=== PATIENT | female | born 1930 | race Caucasian/White ===

== ENCOUNTER → 2017-03-30 | Outpatient (CLI) | payer MEDICARE ==
[~2017-03-30] MED LIST: ACET-1966 PO; ACET500T68 PO; ALBU8.5H12 IH; ASPI-1471 PO; ASPIRIN; ATOR20TA65 PO; ATOR40TA69 PO; AVALIDE; CEP500 PO; CHOL100052 PO; DUL100/5PT INH; FLU180SY9 IM; FLU45SYR25 IM ONLY; FLUT16SP19 NS; HEART MED; HYDR-3503 PO; IRBE1TAB24 PO; LEV112 PO; LEVO-3 PO; LEVO125T77 PO; LEVO88TA45 PO; LISI-347 PO; LISI-353 PO; LOR5 PO; LOVA20TA99 PO; METO25TA91 PO; METO25TA93 PO; METO50TA19 PO; MILK OF MAGNESIA PO; MOM PO; NIC21T TOP; NICO-218 TD; OMEP-137 PO; OMEP-153 PO; PER PO; PNEU0.5D3 IM; PRILOSEC; SIMV-49 PO; TRAM-420 PO; ZOCOR; [UNRECOGNIZED DRUG - OTHER] PO
[2017-03-30 09:39] LABS: PLATELET COUNT, AUTOMATED 406 K/uL (150-450)
== END ==
LOC: LAB 09:09
PROVIDERS: ATTEND Internal Medicine
DX: E78.5 Hyperlipidemia, unspecified (principal); I25.10 Atherosclerotic heart disease of native coronary artery without angina pectoris; J44.9 Chronic obstructive pulmonary disease, unspecified; I10 Essential (primary) hypertension; E03.9 Hypothyroidism, unspecified; R73.9 Hyperglycemia, unspecified
CPT/HCPCS: 36415; 81001; 82040; 82247; 82310; 82374; 82435; 82465; 82565; 82947; 83036; 83718; 84075; 84132; 84155; 84295; 84439; 84443; 84450; 84460; 84478; 84520; 85025

== ENCOUNTER 2017-04-15 00:40 | Day surgery (SDC) | payer MEDICARE ==
[~2017-04-15] VITALS: Ht 167.6 cm; Wt 63.5 kg
[2017-04-15] MEDS ORDERED: OPHTHALMIC PROCEDURE 1 OU PRN (12:00)
[2017-04-15] MEDS ORDERED: OPHTHALMIC PROCEDURE 2 OU PRN ×2 (12:00)
[2017-04-15 13:03] VITALS: BP 147/85
[2017-04-15] MEDS ORDERED: MIDAZOLAM 2 MG/2 ML VIAL IVP ONE (13:30)
[2017-04-15] MEDS ORDERED: NORMOSOL R SOLN(*) 1000 ML BAG 1,000 ML IV PRN (13:30)
[2017-04-15] MEDS ORDERED: LIDOCAINE/SOD BICARB 8.4% SYR ID ONE (13:30)
[2017-04-15] MEDS ORDERED: acetaZOLAMIDE 500 MG CAPCR PO ONE (14:30)
--- NOTE | 2017-04-15 18:09 | FOSTER LEFT EYE CATARACT ---
EVENT DATE: April 15, 2017 SURGEON: Agustin Nelson MD ANESTHESIOLOGIST: Yonatan Landaverde MD ANESTHESIA: MAC PREOPERATIVE DIAGNOSIS Cataract, left eye. POSTOPERATIVE DIAGNOSIS Cataract, left eye. PROCEDURE Phacoemulsification of cataractous lens with implantation of an intraocular lens , left eye. DESCRIPTION OF PROCEDURE The risks and benefits and alternatives were carefully discussed with the patient, and preoperative consent was obtained. The patient was brought to the operating room, after receiving topical anesthetic. The patient was prepped and draped using sterile technique in the usual manner. A stab incision was made and the chamber was inflated with preservative-free lidocaine. DuoVisc was injected to inflate the chamber. A 2.2 mm blade was used to enter the anterior chamber. Utrata forceps were used to tear a circular capsulorrhexis. BSS was used to hydrodissect the nucleus. Phaco tip was introduced and the nucleus was chopped into four quadrants. Each quadrant was removed. The I/A tip was used to remove the cortex. The bag was inflated with ProVisc. The intraocular lens was injected into the capsular bag. The I/A tip was used to remove the ProVisc. The wound was found to be watertight. Vigamox, Nevanac and Maxitrol ointment were placed in the patient's eye. The patient's eye was patched and the patient was taken to the recovery room in stable condition. The patient was examined in the recovery room and found to be stable, prior to release from the hospital. RAFAL
== END 2017-04-15 15:46 | disposition home or self-care (01) ==
LOC: OR 00:40
PROVIDERS: ATTEND Ophthalmology
DX: H26.8 Other specified cataract (principal)
CPT/HCPCS: 66984; A9270; V2632

== ENCOUNTER 2017-05-27 01:37 | Day surgery (SDC) | payer MEDICARE ==
[~2017-05-27] VITALS: Ht 167.6 cm; Wt 65.3 kg
[2017-05-27] MEDS ORDERED: OPHTHALMIC PROCEDURE 2 OD PRN ×2 (11:50)
[2017-05-27] MEDS ORDERED: OPHTHALMIC PROCEDURE 1 OD PRN (11:50)
[2017-05-27] MEDS ORDERED: NORMOSOL R SOLN(*) 1000 ML BAG 1,000 ML IV PRN (12:30)
[2017-05-27] MEDS ORDERED: MIDAZOLAM 2 MG/2 ML VIAL IVP PRN (12:30)
[2017-05-27] MEDS ORDERED: LIDOCAINE/SOD BICARB 8.4% SYR ID ONE (12:30)
[2017-05-27 12:33] VITALS: BP 135/71
[2017-05-27] MEDS ORDERED: acetaZOLAMIDE 500 MG CAPCR PO ONE (13:50)
[2017-05-27 14:46] VITALS: BP 117/80
--- NOTE | 2017-05-27 19:14 | FOSTER RIGHT EYE CATARACT ---
EVENT DATE: May 27, 2017 SURGEON: Agustin Nelson MD ANESTHESIOLOGIST: None. ANESTHESIA: Topical. PREOPERATIVE DIAGNOSIS Cataract, right eye. POSTOPERATIVE DIAGNOSIS Cataract, right eye. PROCEDURE Phacoemulsification of cataractous lens with implantation of an intraocular lens , right eye. DESCRIPTION OF PROCEDURE The risks and benefits and alternatives were carefully discussed with the patient, and preoperative consent was obtained. The patient was brought to the operating room after receiving topical anesthetic. The patient was prepped and draped using sterile technique in the usual manner. A stab incision was made, and the chamber was inflated with preservative-free lidocaine. DuoVisc was injected to inflate the chamber. A 2.2 mm blade was used to enter the anterior chamber. Utrata forceps were used to tear a circular capsulorrhexis. BSS was used to hydrodissect the nucleus. Phaco tip was introduced, and the nucleus was chopped into four quadrants. Each quadrant was removed. The I/A tip was used to remove the cortex. The bag was inflated with ProVisc. The intraocular lens was injected into the capsular bag. The I/A tip was used to remove the ProVisc. The wound was found to be watertight. Vigamox, Nevanac, and Maxitrol ointment were placed in the patient's eye. The patient's eye was patched, and the patient was taken to the recovery room in stable condition. The patient was examined in the recovery room and found to be stable prior to release from the hospital. RAFAL
== END 2017-05-27 15:12 | disposition home or self-care (01) ==
LOC: OR 01:37
PROVIDERS: ATTEND Ophthalmology
DX: H25.11 Age-related nuclear cataract, right eye (principal)
CPT/HCPCS: 66984; A9270; V2632

== ENCOUNTER → 2017-09-28 | Outpatient (CLI) | payer MEDICARE ==
[2017-09-28 09:33] LABS: PLATELET COUNT, AUTOMATED 326 K/uL (150-450)
== END ==
LOC: LAB 09:07
PROVIDERS: ATTEND Internal Medicine
DX: I25.10 Atherosclerotic heart disease of native coronary artery without angina pectoris (principal); E78.5 Hyperlipidemia, unspecified; I10 Essential (primary) hypertension; E03.9 Hypothyroidism, unspecified; R73.9 Hyperglycemia, unspecified
CPT/HCPCS: 36415; 81001; 82040; 82247; 82310; 82374; 82435; 82465; 82565; 82947; 83036; 83718; 84075; 84132; 84155; 84295; 84439; 84443; 84450; 84460; 84478; 84520; 85025

== ENCOUNTER → 2018-03-31 | Outpatient (CLI) | payer MEDICARE ==
[~2018-03-31] MED LIST changes: +SULF-198 PO
[2018-03-31 09:21] LABS: PLATELET COUNT, AUTOMATED 294 K/uL (150-450)
== END ==
LOC: LAB 08:56
PROVIDERS: ATTEND Internal Medicine
DX: R73.01 Impaired fasting glucose (principal); E03.9 Hypothyroidism, unspecified; E78.5 Hyperlipidemia, unspecified; I25.10 Atherosclerotic heart disease of native coronary artery without angina pectoris; I10 Essential (primary) hypertension; R73.9 Hyperglycemia, unspecified
CPT/HCPCS: 36415; 81001; 82040; 82247; 82310; 82374; 82435; 82465; 82565; 82947; 83036; 83718; 84075; 84132; 84155; 84295; 84443; 84450; 84460; 84478; 84520; 85025; 87077; 87088; 87186

== ENCOUNTER → 2018-09-29 | Outpatient (CLI) | payer MEDICARE ==
[2018-09-29 09:23] LABS: PLATELET COUNT, AUTOMATED 295 K/uL (150-450)
== END ==
LOC: LAB 08:53
PROVIDERS: ATTEND Internal Medicine
DX: E03.9 Hypothyroidism, unspecified (principal); R73.01 Impaired fasting glucose; I10 Essential (primary) hypertension; E78.5 Hyperlipidemia, unspecified; I25.10 Atherosclerotic heart disease of native coronary artery without angina pectoris; J44.9 Chronic obstructive pulmonary disease, unspecified
CPT/HCPCS: 36415; 81001; 82040; 82247; 82310; 82374; 82435; 82465; 82565; 82947; 83036; 83718; 84075; 84132; 84155; 84295; 84443; 84450; 84460; 84478; 84520; 85025